=== PATIENT | male | born 1980 | race Caucasian/White ===

== ENCOUNTER 2016-11-29 03:34 | Inpatient (IN) | payer MEDICARE, OTHER ==
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
--- NOTE | ~2016-11-29 | PN ---
Unit #: [id number] #: [id number] Patient: ANGELICA SALAZAR [id number] [facility] [address] [place] [address] [id number] I MR#: [id number] NAME: ANGELICA SALAZAR ROOM: P131 Age: 36 Sex: M Admission Date: 11/29/2016 : 1980 Attending Physician: Filipe Clarke M.D. Admitting Physician: Filipe Clarke M.D. Primary Care Physician: Generic Doctor Not In System [facility] PROGRESS NOTES DATE 12/01/2016 DISCUSSION The patient complains of intrusive sexual thoughts today. He is no longer taking Anafranil but does have a history of intrusive thoughts. I will add paroxetine 20 mg daily in hopes of addressing these intrusive sexual thoughts which today do appear to be genuinely distressing to the patient. Dictated by... Filipe Clarke M.D. CB/darya TD: 12/01/2016 14:03 JOB #: [id number] [facility] PROGRESS NOTES Page 1 of 1 X Filipe Clarke MD X PROGRESS NOTE
--- NOTE | ~2016-11-29 | HP ---
Unit #: [id number] #: [id number] Patient: ANGELICA SALAZAR [id number] [place] [address] [id number] I MR#: [id number] NAME: ANGELICA SALAZAR ROOM: P131 Age: 36 Sex: M Admission Date: 11/29/2016 : 1980 Attending Physician: Filipe Clarke M.D. Admitting Physician: Filipe Clarke M.D. Primary Care Physician: Generic Doctor Not In System HISTORY AND PHYSICAL HISTORY OF PRESENT ILLNESS Angelica is a 36-year-old admitted to [address] [place] [address] with depression and verbalizing wanting to himself. He has had other admissions to this facility for the same. PAST MEDICAL HISTORY 1. Diabetes mellitus 2. High blood pressure 3. Hyperlipidemia PAST SURGICAL HISTORY Nothing reported ALLERGIES No known drug allergies. SOCIAL HISTORY He denies cigarettes, alcohol and illicit drug use. FAMILY HISTORY Medically noncontributory. REVIEW OF SYSTEMS CONSTITUTIONAL: No fever or chills. HEENT: Denies any sore throat, ear pain or runny nose. CARDIOVASCULAR: Denies chest pain, irregular heart rhythm or palpitations. CHEST: Denies shortness of breath or cough. No hemoptysis. GASTROINTESTINAL: Denies nausea, vomiting, diarrhea or chronic constipation. ENDOCRINE: Denies history of increased thirst or urination. No recent significant weight loss or gain. GENITOURINARY: Denies dysuria, frequency, or hematuria. SKIN: Denies any rashes. HEMATOLOGIC: Denies history of increased bleeding or bruising. MUSCULOSKELETAL: Denies any hot, swollen joints. No generalized muscle pain. NEUROLOGIC: Denies problems with vision or speech. No frequent, severe headaches. No numbness, tingling or weakness in any extremities. Denies loss of bladder or bowel control. CURRENT MEDICATIONS Unit #: [id number] #: [id number] Patient: ANGELICA SALAZAR 1. Levemir 50 units q.h.s. 2. Lipitor 40 mg q.h.s. 3. Neurontin 300 mg q.h.s. 4. Haldol 10 mg b.i.d. 5. Lamictal 100 mg b.i.d. 6. Cogentin 1 mg b.i.d. 7. NovoLog per sliding scale 8. Glucophage 1000 mg b.i.d. 9. Claritin 10 mg daily 10. Protonix 40 mg q day 11. Myrbetriq 25 mg q day 12. Zestril 10 mg q day 13. Amitriptyline 25 mg q day 14. Januvia 100 mg q a.m. PHYSICAL EXAMINATION GENERAL: Alert, obese, in no apparent distress. VITAL SIGNS: Blood pressure 126/80, heart rate 80, respirations 16, temperature 98.6. WEIGHT: 213 pounds. HEIGHT: 5'7". SKIN: Warm and dry without rash or lesion. HEENT: Normocephalic. TMs not viewed. Oral and nasal passages clear. Conjunctivae clear. Pupils equal, round and reactive to light and accommodation. Extraocular movements intact. NECK: Supple without lymphadenopathy or thyromegaly. HEART: Regular rate and rhythm without murmur. LUNGS: Clear. ABDOMEN: Soft, nontender. : Not done. EXTREMITIES: No evidence of cyanosis, clubbing or edema. Moves all extremities without focal deficit. NEUROLOGICAL: Grossly within normal limits. Cranial Nerves: II: Visual oreilly are intact. III, IV AND : Extraocular movements are intact. Pupils are equal, round and reactive to light. V: Facial sensation is grossly normal. VII: Facial movements and expression are normal. VIII: Auditory acuity grossly intact. IX, X: Uvula is midline. Phonation is normal. XI: Patient shrugs shoulders and turns head normally. XII: Tongue protrudes in the midline. Sensory and Motor Function: Sensory and motor sensation is grossly normal. Motor: moves all extremities well. Coordination: Gait is normal. Deep Tendon Reflexes: Intact. IMPRESSION Psychiatric admission RECOMMENDATIONS PSYCHIATRIC: Per psychiatrist. MEDICAL: 1. I see no contraindications to participating in facility's activities. 2. D/C Januvia, decrease Levemir to 30 units q.h.s. and start NovoLog sliding scale and monitor Accu-Cheks a.c. and h.s. MEDICAL PROGNOSIS Good. Unit #: [id number] #: [id number] Patient: ANGELICA SALAZAR MEDICAL CONDITION Stable. Dictated by... Bebe Coyle P.A.-C. for Magaly Velasco TD: 11/29/2016 21:59 JOB #: [id number] HISTORY AND PHYSICAL Page 1 of 1 X Bebe Coyle HISTORY AND PHYSICAL
--- NOTE | ~2016-11-29 | PN ---
Unit #: [id number] #: [id number] Patient: ANGELICA SALAZAR [id number] [facility] [address] [place] [address] [id number] I MR#: [id number] NAME: ANGELICA SALAZAR ROOM: 31 Age: 36 Sex: M Admission Date: 11/29/2016 : 1980 Attending Physician: Filipe Clarke M.D. Admitting Physician: Filipe Clarke M.D. Primary Care Physician: Fernanda Doctor Not In System [facility] PROGRESS NOTES DATE 12/02/2016 DISCUSSION The patient has tolerated initiation of paroxetine but is generally well but is complaining a bit of mild nausea which could be related to this medication and continues to complain of intrusive sexual thoughts which are most disturbing to him. He states that in the past he has done well on Loxitane but I have explained to the patient that this is a much older medication and will likely not be initiated at least during this hospital stay. Dictated by... Filipe Clarke M.D. CB/adelia TD: 12/02/2016 15:12 JOB #: [id number] [facility] PROGRESS NOTES Page 1 of 1 X Filipe Clarke MD X PROGRESS NOTE
--- NOTE | ~2016-11-29 | PN ---
Unit #: [id number] #: [id number] Patient: ANGELICA SALAZAR [id number] [facility] [address] [place] [address] [id number] I MR#: [id number] NAME: ANGELICA SALAZAR ROOM: 31 Age: 36 Sex: M Admission Date: 11/29/2016 : 1980 Attending Physician: Filipe Clarke M.D. Admitting Physician: Filipe Clarke M.D. Primary Care Physician: Fernanda Doctor Not In System [facility] PROGRESS NOTES DATE 12/03/2016 DISCUSSION The patient remains dysphoric and continues to complain of intrusive sexual thoughts. I have told the patient that I plan no further medication changes during this hospitalization as he requested possible initiation of Loxitane. I have assured the patient that the recent addition of paroxetine will be our final pharmacotherapeutic manipulation during this stay. Dictated by... Filipe Clarke M.D. CB/bzg TD: 12/03/2016 15:07 JOB #: [id number] [facility] PROGRESS NOTES Page 1 of 1 X Filipe Clarke MD X PROGRESS NOTE
--- NOTE | ~2016-11-29 | CO ---
Unit #: [id number] #: [id number] Patient: ANGELICA SALAZAR [id number] [place] [address] [id number] I MR#: [id number] NAME: ANGELICA SALAZAR ROOM: 31 Age: 36 Sex: M Admission Date: 11/29/2016 : 1980 Attending Physician: Filipe Clarke M.D. Primary Care Physician: Generic Doctor Not In System Consultation Date: 11/29/2016 CONSULTATION REPORT SUBJECTIVE The patient is a 36 year old with diabetes mellitus. He is admitted on his home medications of Levemir 50 units q.h.s., Januvia 100 mg q.a.m., and Glucophage 1000 mg b.i.d. At this time, we will continue the Levemir 50 units q.h.s. and the Glucophage. We will start a NovoLog sliding scale and monitor Accu-Cheks a.c. and h.s. We will discontinue Januvia. Dictated by... Bebe Coyle P.A.-C. for Magaly Velasco TD: 12/01/2016 14:09 JOB #: [id number] CONSULTATION REPORT Page 1 of 1 X Bebe Coyle CONSULTATION REPORT
--- NOTE | ~2016-11-29 | PN ---
Unit #: [id number] #: [id number] Patient: ANGELICA SALAZAR [id number] [facility] [address] [place] [address] [id number] I MR#: [id number] NAME: ANGELICA SALAZAR ROOM: P131 Age: 36 Sex: M Admission Date: 11/29/2016 : 1980 Attending Physician: Filipe Clarke M.D. Admitting Physician: Filipe Clarke M.D. Primary Care Physician: Generic Doctor Not In System [facility] PROGRESS NOTES DATE 12/05/2016 DISCUSSION The patient is continuing to complain of "aggressive thoughts," but has been no management issue. I spoke with the patient regarding the fact that the aggressive thoughts may persistent and may not go entirely away even with aggressive pharmacotherapy and continue to look towards early week discharge. Dictated by... Filipe Clarke M.D. CB/velma TD: 12/05/2016 15:42 JOB #: [id number] [facility] PROGRESS NOTES Page 1 of 1 X Filipe Clarke MD X PROGRESS NOTE
--- NOTE | ~2016-11-29 | PN ---
Unit #: [id number] #: [id number] Patient: ANGELICA SALAZAR [id number] [facility] [address] [place] [address] [id number] I MR#: [id number] NAME: ANGELICA SALAZAR ROOM: P131 Age: 36 Sex: M Admission Date: 11/29/2016 : 1980 Attending Physician: Filipe Clarke M.D. Admitting Physician: Filipe Clarke M.D. Primary Care Physician: Generic Doctor Not In System [facility] PROGRESS NOTES DATE 11/30/2016 DISCUSSION The patient is seclusive to room but does awaken after having his named called several times. The patient states that his reason for sporadic medication compliance is erectile dysfunction. I have discussed with him the fact that there are remedies for this. The patient states that he does plan to return to live with his mother and has reinitiated contact with her. He continues to endorse concern regarding return to that domicile however. Dictated by... Filipe Clarke M.D. CB/julio TD: 12/01/2016 05:21 JOB #: [id number] [facility] PROGRESS NOTES Page 1 of 1 X Filipe Clarke MD X PROGRESS NOTE
--- NOTE | ~2016-11-29 | DS ---
Unit #: [id number] #: [id number] Patient: ANGELICA SALAZAR [id number] [facility] [address] [place] [address] [id number] I MR#: [id number] NAME: ANGELICA SALAZAR ROOM: P131 Age: 36 Sex: M Admission Date: 11/29/2016 : 1980 Discharge Date: 12/07/2016 Attending Physician: Filipe Clarke M.D. Primary Care Physician: Generic Doctor Not In System DISCHARGE SUMMARY REASON FOR ADMISSION The patient is a 36-year-old white male, admitted to the [facility] with increasing aggressive thoughts towards his mother. HOSPITAL COURSE The patient was admitted to the [facility] and placed into the [address] [place] [address] unit and placed on suicide precautions. He was continued on the previously prescribed medications and Paxil 20 mg daily was added given the patient's complaints of intrusive sexual thoughts. The patient seemed to do well with this addition, and as his stay in the hospital progressed, he appeared brighter and reported reduction in both intrusive sexual and aggressive thoughts. He requested discharge to take place on 12/07/2016 and it was so ordered. FINAL DIAGNOSES Schizoaffective disorder, autism spectrum disorder, hypertension, obesity, and diabetes mellitus. DISPOSITION ON DISCHARGE The patient is discharged on the following medications; Protonix 40 mg daily for GERD, Lipitor 40 mg at bedtime for dyslipidemia, Haldol 2 mg b.i.d. for psychosis, Neurontin 300 mg at bedtime for sleep, Glucophage 1000 mg b.i.d. before meals for diabetes mellitus, Zestril 10 mg daily for hypertension, Lamictal 100 mg b.i.d. for mood stabilization, Elavil 25 mg once daily for anxiety, Cogentin 1 mg b.i.d. for extrapyramidal symptoms, Claritin 10 mg once daily for environmental allergies, Myrbetriq 25 mg once daily for urinary frequency, Levemir 30 units at bedtime for diabetic management, NovoLog sliding scale t.i.d. for diabetic management, and Paxil 20 mg once daily for depression and intrusive thoughts. DISCHARGE INSTRUCTIONS No dietary or physical restrictions were placed on the patient at the time of discharge. FOLLOWUP Followup will take place through the auspices of [facility] in [facility]. PROGNOSIS The patient's prognosis is considered fair. Dictated by... Unit #: [id number] #: [id number] Patient: SALAZARANGELICA M.D. CB/ingrid TD: 12/06/2016 13:45 JOB #: [id number] DISCHARGE SUMMARY Page 1 of 1 X Filipe Clarke MD X DISCHARGE SUMMARY
[2016-11-29 09:59] LABS: BASOPHIL# 0.1 X10e3 (0-0.3); DIFF IND NO; EOSINOPHIL# 0.2 X10e3 (0-0.7); HEMATOCRIT 43.6 % (38.0-50.0); HEMOGLOBIN 14.2 gm/dL (13.0-16.0); LYMPHOCYTE# 2.9 X10e3 (1.0-3.5); LYMPHOCYTE% 44.6 % (17.0-45.0); MEAN CELL VOLUME 84.2 FL (83-96); MEAN CORPUSCULAR HEMOGLOBIN 27.4 PG (28-34); MEAN CORPUSCULAR HGB CONC 32.6 g/dL (30-36); MEAN PLATELET VOLUME 10.2 FL (6.5-11.5); MONOCYTE# 0.8 X10e3 (0-1.0); MONOCYTE% 12.2 % (3.0-12.0); NEUTROPHIL# 2.6 X10e3 (1.5-7.1); NEUTROPHIL% 39.2 % (40-75); PLATELET COUNT 111 X10e3 (140-420); RED BLOOD COUNT 5.18 X10e (3.90-5.60); RED CELL DISTRIBUTION WIDTH 14.8 % (11.0-15.5); WHITE BLOOD COUNT 6.6 X10e3 (4.0-10.5)
[2016-11-29 10:01] LABS: ALBUMIN SERUM 4.2 g/dL (3.5-5.0); BILIRUBIN,TOTAL 0.7 mg/dL (0.2-2.0); BUN/CREATININE RATIO 31.66; CALCIUM SERUM 9.1 mg/dL (8.4-10.2); CREATININE SERUM 0.6 mg/dL (0.6-1.4); GLOM FILT RATE Estimated 129.4 mL/min (>60); POTASSIUM 4.5 mmol/L (3.5-5.1); PROTEIN TOTAL SERUM 6.9 g/dL (6.0-8.3)
[2016-11-29 12:30] LABS: URINE APPEARANCE CLEAR; URINE BILIRUBIN NEG (NEG); URINE BLOOD NEG (NEG); URINE COLOR YELLOW; URINE GLUCOSE 500 MG/DL (NEG); URINE KETONE NEG (NEG); URINE LEUKOCYTE ESTERASE NEG (NEG); URINE NITRATE NEG (NEG); URINE PH 6.5 (5-8); URINE PROTEIN NEG (NEG); URINE SPECIFIC GRAVITY 1.021 (1.003-1.035); URINE UROBILINOGEN 0.2 MG/DL (NEG)
[2016-11-29 12:43] LABS: AMPHETAMINE NEG (NEG); BARBITURATES NEG (NEG); BENZODIAZEPINES NEG (NEG); COCAINE NEG (NEG); MARIJUANA NEG (NEG); OPIATES NEG (NEG); TRICYCLIC ANTIDEPRESSANTS POS (NEG); U METHADONE NEG (NEG)
== END 2016-12-07 09:40 | disposition home or self-care (01) | DRG 885 ==
LOC: P2S 03:34 → P1S 19:18
PROVIDERS: Specialist
DX: F25.9 Schizoaffective disorder, unspecified (principal); E11.9 Type 2 diabetes mellitus without complications; R45.851 Suicidal ideations; F84.0 Autistic disorder; I10 Essential (primary) hypertension; Z79.4 Long term (current) use of insulin; K21.9 Gastro-esophageal reflux disease without esophagitis; E78.5 Hyperlipidemia, unspecified; J30.2 Other seasonal allergic rhinitis; N32.81 Overactive bladder; E66.9 Obesity, unspecified; Z68.33 Body mass index [BMI] 33.0-33.9, adult
CPT/HCPCS: 80053; 80307; 81003; 82947; 85025